=== PATIENT | female | born 1945 | race Caucasian/White ===

== ENCOUNTER → 2016-10-31 | Outpatient (CLI) | payer OTHER ==
[~2016-10-31] MED LIST: ACIPHEX20 MG PO; AMITRYPTYLINE; ASPIRIN PO; ASPIRIN81 M1 PO; BENTYL10 MG PO; BUSPAR PO; BUSPAR15 M1 PO; BUSPAR15 M2 PO; BUSPIRONE HCL15 MG PO; CIPRO PO; COLACE PO; COREG3.125 MG PO; CYCLOBENZAPRINE5 MG PO; DEXAMETHASONE4 MG PO; DICLOFENAC PO; DICYCLOMINE HCL20 MG PO; DILANTIN; DILANTIN PO; DIOVAN HCT 80/11 TAB; EXFORGE 10-3201 TAB PO; EXFORGE 5-320 M1 TAB PO; EXFORGE PO; FLEXERIL PO; HYDROCODON-ACE1 EAC5 PO; HYDROCODON-ACE1 EACH PO; LORTAB 101 TAB 10/5 PO; LYRICA PO; LYRICA200 MG PO; NABUMETONE; NORVASC; OMEPRAZOLE40 MG PO; PRAVACHOL20 MG PO; PRAVASTATIN SOD20 MG PO; PREDNISONE PO; PRESERVISION SO1 CAP PO; PREVACID PO; PRILOSEC PO; PRILOSEC40 MG PO; PROTONIX; PROTONIX20 MG PO; REGLAN10 MG; REGLAN10 MG PO; TOPAMAX25 MG PO; TOPAMAX50 MG PO; VICODIN 5/500 T1 TAB PO; ZOFRAN ODT4 MG PO; ZOLOFT PO; ZOLOFT50 MG PO; [UNRECOGNIZED DRUG - OTHER]
--- NOTE | ~2016-10-31 | BD1 ---
[facility] A Service of [facility] & [facility] RADIOLOGY TEXT RESULTS PATIENT: HARPREET HULL LOCATION: [facility] : [birth year] UNIT #: [id number] AGE: [address]: Magan Maciel MD SEX: F ORDER DR: [id number] [facility] [address] [place], [place] [address] [id number] O MR#: [id number] Acc #: [id number] NAME: HARPREET HULL : 1945 SEX: F STUDY DATE/TIME: 10/31/2016 12:27 UNIT: [facility] ROOM: STUDY DESCRIPTION: BD Dexa Bone Dens 1+ Site Attending Physician: Magan Maciel Jr., M.D. Referring Physician: Magan Maciel Jr., M.D. Ordering Physician: Magan Maciel Jr., M.D. Primary Care Physician: Magan Maciel Jr., M.D. MEDICAL IMAGING REPORT This report is preliminary unless electronic signature is present EXAM DXA scan 10/31/2016 HISTORY Status post menopause with no hormone replacement therapy. Osteopenia. Hysterectomy at age 49 with removal of both ovaries. Arthritis. Liver disease. Anticonvulsant use Dilantin for 35 years. Smoking history. FINDINGS Bone mineral density in the lumbar spine from L1-L4 is 0.86 g/cm2 which is 1.7 standard deviations below the mean when compared to the young adult reference population which is characteristic of osteopenia. This is 0.4 standard deviations above the mean when compared to the age-matched population. Bone mineral density in the left femoral neck was 0.543 g/cm2 which is 2.8 standard deviations below the mean when compared to the young adult reference population which is characteristic of osteoporosis. This is 1 standard deviation below the mean when compared to the age-matched population. IMPRESSION Bone mineral density in the lumbar spine characteristic of osteopenia with the left hip characteristic of osteoporosis. Dictated by... Cipriano Rodriges M.D. THIS IS AN ELECTRONICALLY VERIFIED REPORT Cipriano Rodriges M.D. at 11/01/2016 8:07 AM CHAUNCEY/risa TD: 10/31/2016 14:11 JOB #: [id number] [facility] A Service of [facility] & [facility] RADIOLOGY TEXT RESULTS PATIENT: HARPREET HULL LOCATION: [facility] : [birth year] UNIT #: [id number] AGE: [address]: Magan Maciel MD SEX: F ORDER DR: MEDICAL IMAGING REPORT Page 1 of 1 COPY
--- NOTE | ~2016-10-31 | MY11 ---
[facility] A Service of [facility] RADIOLOGY TEXT RESULTS PATIENT: HARPREET HULL LOCATION: [facility] : 49 UNIT #: [id number] AGE: [address]: Magan Maciel MD SEX: F ORDER DR: [id number] [facility] [address] [place], [place] [address] [id number] O MR#: [id number] Acc #: [id number] NAME: HARPREET HULL : 1945 SEX: F STUDY DATE/TIME: 10/31/2016 12:13 UNIT: [facility] ROOM: STUDY DESCRIPTION: MY Mammogram Screening Dig [place]ul Attending Physician: Magan Maciel Jr., M.D. Referring Physician: Magan Maciel Jr., M.D. Ordering Physician: Magan Maciel Jr., M.D. Primary Care Physician: Magan Maciel Jr., M.D. MEDICAL IMAGING REPORT This report is preliminary unless electronic signature is present EXAM Bilateral digital screening mammogram with CAD. DATE 10/31/2016 HISTORY 71-year-old female with no personal or family history of breast cancer or current complaints. COMPARISON Bilateral screening mammogram 09/20/2014 and 06/22/2009. FINDINGS CC and MLO views were obtained of each breast utilizing digital technique and reviewed with an FDA-approved CAD device. Scattered fibroglandular densities are present bilaterally, greatest in the anterior right breast, similar to the previous exam. 2 groupings of coarse calcifications are seen within the lateral hemisphere of the left breast, 1 more posteriorly oriented and more densely calcified, in keeping with an involuting fibroadenoma. An oval nodule within the posterior third of the right breast lateral hemisphere is not thought to be significantly changed and is thought to correspond to a 9 mm cyst seen on the previous diagnostic ultrasound of 07/06/2009. Benign appearing fatty replaced axillary lymph nodes are demonstrated. No architectural distortion. IMPRESSION BIRADS 2. Benign findings. Routine bilateral screening mammogram is recommended in 1 year. Patients over the age of 40 are entered into a reminder system with target [facility] A Service of [facility] RADIOLOGY TEXT RESULTS PATIENT: HARPREET HULL LOCATION: [facility] : [birth year] UNIT #: [id number] AGE: [address]: Magan Maciel MD SEX: F ORDER DR: due date for the next mammogram. A result letter will also be sent to the patient. BIRADS: 2 Benign finding. Dictated by... Argelia Louie M.D. THIS IS AN ELECTRONICALLY VERIFIED REPORT Argelia Louie M.D. at 11/01/2016 7:04 AM DEB/kaley TD: 10/31/2016 14:58 JOB #: [id number] MEDICAL IMAGING REPORT Page 1 of 1 COPY
== END | disposition home or self-care (01) ==
LOC: CWCC 11:42
DX: Z12.31 Encounter for screening mammogram for malignant neoplasm of breast (principal); M85.88 Other specified disorders of bone density and structure, other site; M81.0 Age-related osteoporosis without current pathological fracture
CPT/HCPCS: 77080; G0202